=== PATIENT | male | born 1940 | race Caucasian/White ===

== ENCOUNTER → 2017-10-18 | Outpatient (CLI) | payer BC, MEDICARE ==
--- NOTE | 2017-10-18 14:33 | XR ---
EXAMINATION TYPE: XR toes LT DATE OF EXAM: 10/18/2017 COMPARISON: NONE HISTORY: Patient dropped hammer on the fifth digit. Patient is unable to move the fifth digit. TECHNIQUE: 3 views of the left fifth digit/toe were obtained FINDINGS: There is a transversely oriented noncomminuted fracture with overlying soft tissue swelling of the middle phalanx of the fifth digit. No radiopaque foreign body is seen. No additional fracture is identified. IMPRESSION: Transversely oriented noncomminuted acute fracture of the middle phalanx of the fifth dig it/toe.
== END | disposition home or self-care (01) ==
LOC: RADXRYALE 14:00
PROVIDERS: ATTEND Physician Assistant
DX: S92.522A Displaced fracture of middle phalanx of left lesser toe(s), initial encounter for closed fracture (principal)

== ENCOUNTER → 2019-02-15 | Outpatient (CLI) | payer MEDICARE ==
--- NOTE | 2019-02-15 13:13 | CT ---
EXAMINATION TYPE: CT brain wo con DATE OF EXAM: 02/15/2019 COMPARISON: March 19, 2016 HISTORY: Right sided facial and body numbness CT DLP: 1162.[address] of the brain was performed. The ventricles, basal cisterns and sulci overlying the cerebral convexities demonstrate mild enlargem ent. There is no evidence for intracranial hemorrhage or sulcal effacement. There is decreased attenuation about the periventricular white matter and deep white matter of both c erebral hemispheres, compatible with chronic small vessel ischemia. Differential diagnosis does inclu de demyelination. No mass effects are seen.No midline shift. Osseous calvarium is intact. If symptoms persist consider MRI. IMPRESSION: 1. Age related atrophic and chronic small vessel ischemic change without acute intracranial process s een at this time.
== END | disposition home or self-care (01) ==
LOC: RADCTMAIN 12:36
PROVIDERS: ATTEND Family Medicine
DX: I67.82 Cerebral ischemia (principal); G31.1 Senile degeneration of brain, not elsewhere classified; E78.2 Mixed hyperlipidemia; I10 Essential (primary) hypertension; Z85.46 Personal history of malignant neoplasm of prostate
CPT/HCPCS: 70450

== ENCOUNTER → 2019-06-12 | Outpatient (CLI) | payer MEDICARE ==
--- NOTE | 2019-06-12 11:33 | XR ---
EXAMINATION TYPE: XR lumbar spine 2 or 3V DATE OF EXAM: 06/12/2019 CLINICAL HISTORY: Low back pain TECHNIQUE: Frontal and lateral images of the lumbar spine are obtained. COMPARISON: None FINDINGS: There are 5 lumbar type vertebral bodies identified. Bridging anterior osteophytes are se en in the lumbar spine. Intervertebral disc space narrowing is present at L4-5 and L5-S1. Multilevel facet arthropathy. Multilevel endplate sclerosis. Partially visualized hip arthroplasties. Generalize d diffuse osseous demineralization. Lumbar spine vertebral body heights are maintained. Alignment is also maintained in the lumbar spine. IMPRESSION: Moderate multilevel degenerative disc disease of lumbar spine without acute fracture nor malalignment.
== END ==
LOC: RADXRYALE 11:06
PROVIDERS: ATTEND Family Medicine
DX: M51.36 Other intervertebral disc degeneration, lumbar region (principal); M79.661 Pain in right lower leg; R20.2 Paresthesia of skin
CPT/HCPCS: 72100

== ENCOUNTER 2019-08-22 07:43 | Day surgery (SDC) | payer MEDICARE ==
[2019-08-21 09:02] VITALS: BMI 34.7
[~2019-08-22 07:43] MED LIST: LACTATED RINGERS 1,000 ML IV SCH; LIDOCAINE 1% 20 ML VIAL (10MG/ML) FOR IV START INTRADERMA PRN
[2019-08-22 08:08] VITALS: RESP 16; TEMP 98
[2019-08-22] MEDS ORDERED: PROPOFOL 10 MG/ML 20 ML VIAL IV ONE (08:37)
--- NOTE | 2019-08-22 09:21 | P.PCN ---
Date of Procedure: 08/22/19 Description of Procedure: BRIEF HISTORY: Patient is a 78-year-old male presenting for outpatient colonoscopy for history of colon polyps. Denies any change in bowel habits, blood per rectum or abdominal pain. Believes his last colonoscopy was approximately 15 years ago. PROCEDURE PERFORMED: Colonoscopy with polypectomy. PREOPERATIVE DIAGNOSIS: History of colon polyps, remote history of colonoscopy. ESTIMATED BLOOD LOSS: Minimal. IV sedation per Anesthesia. PROCEDURE: After informed consent was obtained, the patient, was brought into the endoscopy unit. IV sedation was administered by Anesthesia under continuous monitoring. Digital rectal examination was normal. Initially a pediatric inserted in the rectum, gradually advanced into the cecum without any difficulty. Careful examination was performed as the scope was gradually being withdrawn. Ileocecal valve and the appendiceal orifice were visualized and appeared normal. Prep was excellent. Mucosa of the cecum, ascending colon, transverse colon, descending colon, sigmoid colon, and rectum appeared normal. Multiple small mouth diverticula in the left colon. 2 polyps measuring 6 mm and 4 mm in size removed from the transverse colon. Diminutive 2 mm descending colon polyp removed with cold forcep polypectomy. Flat 4 mm sigmoid polyp removed with cold snare polypectomy. Retroflexion was performed in the rectum and no lesions were seen. The patient tolerated the procedure well. IMPRESSION: 4 polyps measuring in size from 2-6 mm removed from the transverse colon, descending colon and sigmoid colon (please see body of report for location, size and technique of polypectomy). Mild left colonic diverticulosis. RECOMMENDATIONS: Findings of this examination were discussed with the patient and his . Okay to resume diet. Okay to resume medications. Await pathology from polypectomies. Would recommend repeat colonoscopy in 3 years if otherwise medically stable.
[2019-08-22 09:40] VITALS: BP 112/62; PULSE 49
== END 2019-08-22 09:50 | disposition home or self-care (01) ==
LOC: ORWHC2ENDO 07:43
PROVIDERS: ATTEND Internal Medicine
DX: Z12.11 Encounter for screening for malignant neoplasm of colon (principal); D12.4 Benign neoplasm of descending colon; D12.5 Benign neoplasm of sigmoid colon; K63.5 Polyp of colon; K57.30 Diverticulosis of large intestine without perforation or abscess without bleeding; Z86.010 Personal history of colon polyps; I10 Essential (primary) hypertension; E78.5 Hyperlipidemia, unspecified; F17.210 Nicotine dependence, cigarettes, uncomplicated; E07.9 Disorder of thyroid, unspecified; E66.9 Obesity, unspecified; Z79.899 Other long term (current) drug therapy; Z79.890 Hormone replacement therapy; Z90.79 Acquired absence of other genital organ(s); Z98.890 Other specified postprocedural states; Z85.46 Personal history of malignant neoplasm of prostate; Z68.35 Body mass index [BMI] 35.0-35.9, adult
CPT/HCPCS: 88305; 45380; 45385; J2704

== ENCOUNTER → 2020-12-18 | Outpatient (CLI) | payer MEDICARE ==
--- NOTE | 2020-12-19 05:03 | MR ---
EXAMINATION TYPE: MR lumbar spine wo/w con DATE OF EXAM: 12/18/2020 COMPARISON: None HISTORY: Lower back pain with bilateral sciatica. CONTRAST: Standard multiplanar, multisequence MRI departmental protocol utilizing 11 mL intravenous Gadavist ga dolinium contrast. The lumbar vertebra have normal alignment. There is degenerative disc space narrowing throughout the lumbar spine. There is no compression fracture. I see no focal bone destruction. There is small poste rior disc bulging from L2 to S1. There is some hypertrophic multilevel facet arthropathy. There is mi ld lateral recess stenosis at L4-5 and L2-3. No significant spinal stenosis. There is no lumbar paraspinal mass. There is 1.7 cm cortical cyst posterior left kidney. The visualiz ed sacroiliac joints appear intact. I see no focal bone destruction. IMPRESSION: Multilevel mild spondylotic changes. Mild lateral recess stenosis at L2-3 and L4-5. No fracture.
== END | disposition home or self-care (01) ==
LOC: RADMRIMAIN 16:33
PROVIDERS: ATTEND Family Medicine
DX: M48.061 Spinal stenosis, lumbar region without neurogenic claudication (principal); M47.816 Spondylosis without myelopathy or radiculopathy, lumbar region
CPT/HCPCS: 72158; A9585

== ENCOUNTER → 2021-02-05 | Outpatient (CLI) | payer MEDICARE ==
[2021-02-05 10:39] VITALS: BP 130/72; PULSE 64; RESP 20; TEMP 97.7
--- NOTE | 2021-02-05 11:09 | P.PAINCN ---
History of Present Illness - Reason for Consult Consult date: 02/05/21 - History of Present Illness This is 80 years old male, with a chronic history of severe low back pain with radiation to the hip bilaterally, patient had the symptoms for more than 10 years, but that the intensity of the pain increased over the last 7 months, the pain is constant interfere with the quality of life, patient denies any motor or sensory deficit, he reported that any activity increases his pain, denies any f ever or night sweats. He denies any change in the bowel movement or urination, and home exercise without any benefit Past Medical History Past Medical History: Cancer, Hyperlipidemia, Hypertension, Prostate Disorder, Thyroid Disorder Additional Past Medical History / Comment(s): HX PROSTATE CA 2006 WITH RADIATION TX, URINARY LEAKAGE, SOB W/ ACTIVITY. History of Any Multi-Drug Resistant Organisms: None Reported Past Surgical History: Appendectomy, Prostate Surgery Additional Past Surgical History / Comment(s): PROSTATECTOMY, PERMANENT CONTACT LENS IMPLANT LT EYE, HX JAW SURGERY R/T JAW FX Past Anesthesia/Blood Transfusion Reactions: No Reported Reaction Additional Past Anesthesia/Blood Transfusion Reaction / Comm: STATES "UNABLE TO FULLY OPEN JAW R/T PRIOR JAW SURGERY, WAS TOLD BY PAIN CLINIC MAYBE DIFFICULT TO INTUBATE." Smoking Status: Light tobacco smoker - Past Family History Mother Family Medical History: Cancer Additional Family Medical History / Comment(s): LUNG Medications and Allergies Home Medications Medication Instructions Recorded Confirmed Type Fish Oil/Dha/Epa [Fish Oil 1,200 1,200 mg PO DAILY 02/28/14 02/05/21 History mg Fish Oil] Levothyroxine Sodium [Synthroid] 125 mcg PO QAM 02/28/14 02/05/21 History lisinopriL 40 mg PO BID 02/28/14 02/05/21 History Rosuvastatin Calcium [Crestor] 40 mg PO HS 06/18/14 02/05/21 History Cholecalciferol [Vitamin D3 (25 1,000 unit PO DAILY 08/21/19 02/05/21 History Mcg = 1000 Iu)] Glucosamine Sulfate 500 mg PO DAILY 08/21/19 02/05/21 History amLODIPine [Norvasc] 2.5 mg PO DAILY 08/21/19 02/05/21 History Allergies Allergy/AdvReac Type Severity Reaction Status Date / Time No Known Allergies Allergy Verified 08/22/19 08:11 Physical Exam Vitals: Vital Signs Temp Pulse Resp BP Pulse Ox 02/05/21 10:23 97.7 F 64 20 130/72 97 Intake and Output 02/04/21 02/05/21 02/05/21 22:59 06:59 14:59 Other: Weight 105.233 kg Physical Examinations : -Constitutiona : Cooperative , not in acute distress . -HEENT : nech : supple , no Lymphadenopathy , normal thyroid size . : eyes : no ptosis , no icterus, no photophobia . - neurologic : Cranial nerve II to XII intact , no focal neurological deffecit . -psychatric : alert , oriented X 3 , appropriate affect , intact judgment and insight . -Lymphatic : no Lymphadenopathy . - musculoskeltal : Lumber spine moter stegnth lower extremities ,thigh and legs 5/5 Right side , 5/5 Left side deep tendon reflexes : normal Knee Jerk , normal ankle Jerk lumber facet Loading Test =positive Right , positive Left Range of motion of the lumbar spine Flexion 30 degrees, extension 10 degrees strait leg raising test = positive at 45 degree Fabere test= positive Right , and positive LT . tenderness over the Sacroiliac joint on the Left sides Flexion, lateral rotation of the hip joint associated with pain Results Comments: MRI of the lumbar spine multilevel spondylosis and there is some hypertrophic facet arthropathy Assessment and Plan Plan: Assessment and plan=1-lumbar spondylosis with lumbar facet arthropathy. 2-lumbar degenerative disc disease. 3-bilateral hip arthralgia (had bilateral hip replacement surgery more than 10 years ago) And could benefit from lumbar epidural steroid injection at L5-S1 x2 , he continued to have pain after the epidural steroid injection then We could consider referring him for evaluation by orthopedic surgeon, regarding his hip pain Time with Patient: Greater than 30 PQRS Measure Charge Sheet Measure #130: Documentation of Current Meds in Medical Chart: Patient's medications documented in chart Measure #226: Tobacco Use: Screen & Cessation Intervention: Pt screened for tobacco use AND intervention given Measure #111: Pneumonia Vaccination: Pneumococcal vaccine NOT administered or previously given Measure #47: Advance Care Plan: Advance care planning discussed & documented, pt chose/unable to give Measure #412: Opioid Treatment Agreement: No documentation of signed opioid treatment agreement Measure #408: Opioid Therapy Follow-up Evaluation: Patient had NO f/u eval minimum every 3 months during opioid therapy Measure #317: Preventitive Care & Scrn High Bld Press & F/U: Normal blood pressure, f/u not required Measure #128: Body Mass Index (BMI) Screening & Follow-up: BMI documented ABOVE normal parameters - f/u documented Measure #131: Pain Assessment & Follow-up: Pain positive & plan documented, Follow-up scheduled Measure #431: Unhealthy Alcohol Use Preventative Care & Scrn: Patient not identified as an unhealthy alcohol user PQRS Narrative: Smoking Status Current every day smoker Blood Pressure 130/72 Pain Intensity [Bilateral Hip] 8 Scale Used Numeric (1 - 10) Hx Alcohol Use (MH) Yes: occ Home Medications: Ambulatory Orders Fish Oil/Dha/Epa [Fish Oil 1,200 mg Fish Oil] 1,200 mg PO DAILY 02/28/14 Levothyroxine Sodium [Synthroid] 125 mcg PO QAM 02/28/14 lisinopriL 40 mg PO BID 02/28/14 Rosuvastatin Calcium [Crestor] 40 mg PO HS 06/18/14 Cholecalciferol [Vitamin D3 (25 Mcg = 1000 Iu)] 1,000 unit PO DAILY 08/21/19 Glucosamine Sulfate 500 mg PO DAILY 08/21/19 amLODIPine [Norvasc] 2.5 mg PO DAILY 08/21/19
== END ==
LOC: PNWHC3 09:44
PROVIDERS: ATTEND Specialist
DX: M47.816 Spondylosis without myelopathy or radiculopathy, lumbar region (principal); M51.36 Other intervertebral disc degeneration, lumbar region; M25.552 Pain in left hip; M25.551 Pain in right hip; Z96.643 Presence of artificial hip joint, bilateral; E78.5 Hyperlipidemia, unspecified; I10 Essential (primary) hypertension; F17.200 Nicotine dependence, unspecified, uncomplicated; Z79.899 Other long term (current) drug therapy
CPT/HCPCS: 99212

== ENCOUNTER 2021-02-27 12:24 | Day surgery (SDC) | payer MEDICARE ==
[2021-02-25 16:05] VITALS: BMI 33.3
[~2021-02-27 12:24] MED LIST changes: -LIDOCAINE 1% 20 ML VIAL (10MG/ML) FOR IV START INTRADERMA PRN
[2021-02-27 13:27] VITALS: TEMP 98.4
[2021-02-27] MEDS ORDERED: MIDAZOLAM 2 MG/2 ML VIAL ONE (13:54)
[2021-02-27] MEDS ORDERED: IOPAMIDOL M200 10 ML VIAL ONE (13:54)
[2021-02-27] MEDS ORDERED: TRIAMCINOLONE ACETONIDE 40 MG/ML 1 ML VIAL ONE (13:54)
[2021-02-27] MEDS ORDERED: fentaNYL (PF) 50 MCG/ML 2 ML AMP ONE (13:54)
[2021-02-27] MEDS ORDERED: ROPIVACAINE 5MG/ML 20ML VIAL ONE (13:54)
--- NOTE | 2021-02-27 14:09 | P.PCN ---
Date of Procedure: 02/27/21 Surgeon: Brissa Cardenas Pathology: none sent Condition: stable Disposition: PACU Description of Procedure: REOPERATIVE DIAGNOSIS: 1-Lumbar radiculopathy 2- Lumber Degenerative Disc Diseases. POSTOPERATIVE DIAGNOSIS: 1-Lumbar radiculopathy. 2-Lumbar Degenerative Disc Diseases PROCEDURE 1. Lumbar epidural steroid injection under fluoroscopic guidance at the L5-S1 level in the right paramedian approach. 2. Lumbar epidurogram. ANESTHESIA: Local with 1% lidocaine; and IV moderate conscious sedation with Versed and fentanyl EBL: Minimal PROCEDURE INDICATION: The patient with low back pain and radiculitis symptoms unresponsive to conservative treatment. Fluoroscopy was used to optimize visualization of the needle placement and to maximize safety. PROCEDURE DESCRIPTION / TECHNIQUE: The patient was seen and identified in the preoperative area. Risks, benefits, complications including but not limited to infections ,bleeding ,allergic reaction to the medications ,nerve damage and not complete pain relief , and alternatives were discussed with the patient. The patient agreed to proceed with the procedure and signed the consent. IV was started, and vital signs were stable. Patient was taken to the OR and time out was completed. The patient was placed in the prone position on procedure table and a pillow was placed under the abdomen to reduce lumbar lordosis. The lumbosacral area was prepped and draped in the usual sterile fashion with ChloraPrep.Patient was closely monitored during the procedure. Conscious sedation was used during the procedure to decrease patients anxiety. Vital signs were monitered during the entire procedure. Using anterior-posterior fluoroscopy, the L5-S1 interlaminar space was identified and the skin over this site was marked and then infiltrated with 1% lidocaine subcutaneously. Subsequently, a 20-gauge Tuohy epidural needle was inserted and advanced toward the epidural space using the Loss of resistance to air technique and guided by AP and lateral fluoroscopy. The correct needle position in the epidural space was verified with the injection of 1 mL of the water soluble contrast dye Omnipaque 180 contrast and observing an excellent epidurogram with the epidural spread of the dye, after negative aspiration for blood and CSF and in the absence of paresthesias. Again after negative aspiration, a 7 ml mixture containing 40 mg of Kenalog and 5 ml of preservative free Normal Saline, and 2 ml of preservative free ropivacaine 0.5% solution was injected and a washout of epidurogram was seen. Needle was withdrawn intact, skin was cleansed, and bandages were applied. patient tolerated procedure well and was transferred to PACU in stable condition.A copy of the needle placement picture was saved to the fluoroscopy machine. COMPLICATIONS: None DISPOSITION / PLANS: The patient was placed in a supine position and transferred to the recovery area in a stable condition for observation. There was no evidence of lower extremity motor or sensory deficit after the procedure. Patient was discharged from the recovery room after meeting discharge criteria. Home discharge instructions were given to the patient by the staff. The patient was reexamined prior to discharge. The patient will schedule a follow up in the clinic in 2-4 weeks.
[2021-02-27] MEDS ORDERED: IV FLUID CONTINUATION 1,000 ML IV ONE (14:15)
[2021-02-27 14:17] VITALS: BP 111/61; PULSE 53; RESP 16
--- NOTE | 2021-02-27 14:58 | FL ---
EXAMINATION TYPE: FL guided pain mgmt statistic DATE OF EXAM: 02/27/2021 FLUOROSCOPY Fluoroscopy time of 11 seconds was used during lumbar epidural steroid injection. 2 image/s document /s the procedure.
== END 2021-02-27 14:49 | disposition home or self-care (01) ==
LOC: ORPAIN 12:24
PROVIDERS: ATTEND Anesthesiology
DX: M51.16 Intervertebral disc disorders with radiculopathy, lumbar region (principal)
CPT/HCPCS: 62323; J2250; J3301; J3010; Q9966; J2795; 99152

== ENCOUNTER → 2021-03-19 | Outpatient (CLI) | payer MEDICARE ==
[2021-03-19 13:19] VITALS: BP 127/70; PULSE 56; RESP 18; TEMP 98.4
--- NOTE | 2021-03-19 13:31 | P.PAINPG ---
Subjective Progress Note Date: 03/19/21 This is 80 years old male, with a chronic history of severe low back pain with radiation to the hip bilaterally, patient had the symptoms for more than 10 years, but that the intensity of the pain increased over the last 7 months, the pain is constant interfere with the quality of life, patient denies any motor or sensory deficit, he reported that any activity increases his pain, denies any fever or night sweats. He denies any change in the bowel movement or urination, and home exercise without any benefit We recently performed L5-S1 epidural steroid injection. Injection was quite helpful, commenting that it provided about 50% relief and significant improved dysfunction.. He is currently doing physical therapy which was not helpful. He wants to repeat injection as a not only help with his low back pain with hip pain as well. Physical Examinations : -Constitutiona : Cooperative , not in acute distress . -HEENT : nech : supple , no Lymphadenopathy , normal thyroid size . : eyes : no ptosis , no icterus, no photophobia . - neurologic : Cranial nerve II to XII intact , no focal neurological deffecit . -psychatric : alert , oriented X 3 , appropriate affect , intact judgment and insight . -Lymphatic : no Lymphadenopathy . - musculoskeltal : Lumber spine moter stegnth lower extremities ,thigh and legs 5/5 Right side , 5/5 Left side deep tendon reflexes : normal Knee Jerk , normal ankle Jerk lumber facet Loading Test =positive Right , positive Left Range of motion of the lumbar spine Flexion 30 degrees, extension 10 degrees strait leg raising test = positive at 45 degree Fabere test= positive Right , and positive LT . tenderness over the Sacroiliac joint on the Left sides Flexion, lateral rotation of the hip joint associated with pain Results Comments: MRI of the lumbar spine multilevel spondylosis and there is some hypertrophic facet arthropathy Assessment and Plan Plan: Assessment and plan=1-lumbar spondylosis with lumbar facet arthropathy. 2-lumbar degenerative disc disease. 3-bilateral hip arthralgia (had bilateral hip replacement surgery more than 10 years ago) - Patient could Benefit from repeat L5-S1 epidural steroid injection. He is a history of hip pain as well and could benefit from future orthopedic evaluation if it is not improved with injections. I have spent 23 minutes on review of the records, review of the imaging available, [id number] interaction with the patient, medication management, follow-up care coordination and record creation. PQRS Measure Charge Sheet Measure #130: Documentation of Current Meds in Medical Chart: Patient's medications documented in chart Measure #226: Tobacco Use: Screen & Cessation Intervention: Pt screened for tobacco use AND intervention given Measure #111: Pneumonia Vaccination: Pneumococcal vaccine NOT administered or previously given Measure #47: Advance Care Plan: Advance care planning discussed & documented, pt chose/unable to give Measure #412: Opioid Treatment Agreement: No documentation of signed opioid treatment agreement Measure #408: Opioid Therapy Follow-up Evaluation: Patient had NO f/u eval minimum every 3 months during opioid therapy Measure #317: Preventitive Care & Scrn High Bld Press & F/U: Normal blood pressure, f/u not required Measure #128: Body Mass Index (BMI) Screening & Follow-up: BMI documented ABOVE normal parameters - f/u documented Measure #131: Pain Assessment & Follow-up: Pain positive & plan documented, Follow-up scheduled Measure #431: Unhealthy Alcohol Use Preventative Care & Scrn: Patient not identified as an unhealthy alcohol user PQRS Narrative: Objective - Vital Signs Vital signs: Intake & Output 03/17/21 03/18/21 03/18/21 18:59 06:59 18:59 Weight 102.965 kg PQRS Measure Charge Sheet PQRS Narrative: Smoking Status Current every day smoker Pain Intensity [None] 0 Hx Alcohol Use (MH) Yes: occ Home Medications: Ambulatory Orders Fish Oil/Dha/Epa [Fish Oil 1,200 mg Fish Oil] 1,200 mg PO DAILY 02/28/14 Levothyroxine Sodium [Synthroid] 125 mcg PO QAM 02/28/14 lisinopriL 40 mg PO BID 02/28/14 Rosuvastatin Calcium [Crestor] 40 mg PO HS 06/18/14 Cholecalciferol [Vitamin D3 (25 Mcg = 1000 Iu)] 1,000 unit PO DAILY 08/21/19 Glucosamine Sulfate 500 mg PO DAILY 08/21/19 amLODIPine [Norvasc] 2.5 mg PO DAILY 08/21/19 Controlled Substance Measures - Controlled Substance Measures Is patient prescribed a controlled substance at discharge?: No
== END ==
LOC: PNWHC3 12:49
PROVIDERS: ATTEND Anesthesiology
DX: M47.816 Spondylosis without myelopathy or radiculopathy, lumbar region (principal); M51.36 Other intervertebral disc degeneration, lumbar region; M25.552 Pain in left hip; M25.551 Pain in right hip; F17.200 Nicotine dependence, unspecified, uncomplicated; Z96.643 Presence of artificial hip joint, bilateral
CPT/HCPCS: 99211

== ENCOUNTER 2021-04-24 10:54 | Day surgery (SDC) | payer MEDICARE ==
[2021-04-23 10:06] VITALS: BMI 33.1
[2021-04-24 11:45] VITALS: TEMP 98.3
[2021-04-24] MEDS ORDERED: LIDOCAINE 1% (10MG/ML) FOR IV START INTRADERMA ONE (11:45)
[2021-04-24] MEDS ORDERED: methylPREDNISolone ACETATE 40 MG/ML 1 ML VIAL ONE (12:03)
[2021-04-24] MEDS ORDERED: fentaNYL (PF) 50 MCG/ML 2 ML AMP ONE (12:03)
[2021-04-24] MEDS ORDERED: IOPAMIDOL M200 10 ML VIAL ONE (12:03)
[2021-04-24] MEDS ORDERED: MIDAZOLAM 2 MG/2 ML VIAL ONE (12:03)
--- NOTE | 2021-04-24 12:17 | P.PCN ---
Date of Procedure: 04/24/21 Procedure(s) Performed: PREOPERATIVE DIAGNOSIS: 1- Lumbar Degenerative Disc Diseases 2-Lumbar spondylosis with Facet arthropathy without myelopathy. 3-bilateral hip arthralgia POSTOPERATIVE DIAGNOSIS: Same as preop diagnosis. PROCEDURE 1. Lumbar epidural steroid injection under fluoroscopic guidance at the L5-S1 level. (Fluoroscopy imaging was available in radiology department) 2. Lumbar epidurogram. ANESTHESIA: Local with 1% lidocaine 3 ml and , moderate sedation with intravenous Versed 1 mg ,and fentanyle 50 Mcg EBL: Minimal PROCEDURE INDICATION: The patient with low back pain and radiculitis symptoms unresponsive to conservative treatment. Fluoroscopy was used to optimize visualization of the needle placement and to maximize safety. PROCEDURE DESCRIPTION / TECHNIQUE: The patient was seen and identified in the preoperative area. Risks, benefits, complications including but not limited to infections ,bleeding ,allergic reaction to the medications ,nerve damage and not complete pain releife , and alternatives were discussed with the patient. The patient agreed to proceed with the procedure and signed the consent. IV was started, and vital signs were stable. Patient was taken to the OR and time out was completed. The patient was placed in the prone position on procedure table and a pillow was placed under the abdomen to reduce lumbar lordosis. The lumbosacral area was prepped and draped in the usual sterile fashion.ere closely monitored during the procedure. Conscious sedation was used during the procedure to decrease patients anxiety. Vital signs was monitered during the entire procedure. Using anterior-posterior fluoroscopy, the L5-S1 interlaminar space was identified and the skin over this site was marked and then infiltrated with 1% lidocaine subcutaneously. Subsequently, a 20-gauge Tuohy epidural needle was inserted and advanced toward the epidural space using the ``Loss of resistance technique and guided by AP and lateral fluoroscopy. The correct needle position in the epidural space was verified with the injection of 2 mL of the water soluble contrast dye Isovue 200 contrast and observing an excellent epidurogram with the epidural spread of the dye, after negative aspiration for blood and CSF and in the absence of paresthesias. Again after negative aspiration, a 6 ml mixture containing 40 mg of Depo-medrol , and 2 ml of preservative free Normal Saline, and 2 ml of preservative free lidocaine 1% solution was injected and a washout of epidurogram was seen. Needle was withdrawn intact, skin was cleansed, and bandages were applied. COMPLICATIONS: None DISPOSITION / PLANS: The patient was placed in a supine position and transferred to the recovery area in a stable condition for observation. There was no evidence of lower extremity motor or sensory deficit after the procedure. Patient was discharged from the recovery room after meeting discharge criteria. Home discharge instructions were given to the patient by the staff. The patient was reexamined prior to discharge. The patient will schedule a follow up in the clinic in 2-4 weeks.
[2021-04-24] MEDS ORDERED: IV FLUID CONTINUATION 750 ML IV ONE (12:22)
[2021-04-24 12:28] VITALS: RESP 20
--- NOTE | 2021-04-24 12:51 | FL ---
Fluoroscopy HISTORY: Pain 2 seconds fluoroscopy time supplied to the referring clinician. 1 intraoperative C-arm images docume nt the procedure. See dictated report from anesthesia.
[2021-04-24 13:17] VITALS: BP 112/76; PULSE 51
== END 2021-04-24 13:13 | disposition home or self-care (01) ==
LOC: ORPAIN 10:54
PROVIDERS: ATTEND Specialist
DX: M51.36 Other intervertebral disc degeneration, lumbar region (principal); M47.816 Spondylosis without myelopathy or radiculopathy, lumbar region; M25.552 Pain in left hip; M25.551 Pain in right hip
CPT/HCPCS: 62323; J2250; J1030; J3010; Q9966; 99152

== ENCOUNTER → 2021-05-15 | Outpatient (CLI) | payer MEDICARE ==
[2021-05-15 13:51] VITALS: BP 149/63; PULSE 56; RESP 18; TEMP 97.9
--- NOTE | 2021-05-15 13:57 | P.PN ---
Subjective Progress Note Date: 05/15/21 This is a 80-year-old gentleman with history of axial lower back pain and o ccasional weakness in the right lower extremity. The patient had 2 lumbar epidural steroid injections which helped his pain significantly. Today he denies any back pain and he states that he is doing great. 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 Patient denies new-onset weakness, bowel/bladder incontinence, or any other signs or symptoms of cauda equina syndrome. There are no signs of acute intoxication, and no indications of medication diversion or overuse. In addition to above, 13-point review of systems is also negative for chest pain, shortness of breath, changes in vision, changes in hearing, new onset weakness, abdominal pain, diarrhea, extreme fatigue, malaise, fever, skin changes, homicidal or suicidal ideation, or bowel or bladder incontinence. 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 Explanation: When patients on opioids, opioid and psychological risk scores were reviewed. Diagnoses, prognoses, and multiple treatment options including but not limited to physical therapy, interventional therapies, adjuvant medical therapies, narcotic medication therapies, and surgery were discussed with the patient and all questions were answered to the patient's satisfaction. 2. Opioid agreement:When patients are prescribed opoids through our clinic, opioid agreement is signed with the patient and the patient is warned not to use opioids while driving or before driving and not to combine opioids with benzodiazepines or alcohol. 3. Counseling: When patient is smoking or obese, the patient was counseled extensively on SMOKING CESSATION, BODY MASS INDEX, EXERCISE. Specifically, the patient was instructed regarding the importance of smoking cessation, obesity, and exercise in the context of both chronic pain and overall health. 4. Procedures: None 5. Consultations: None 6. Investigations: None 7. Medications: None 8. Disposition: Follow up as needed 9. Maps were reviewed and were appropriate. Objective - Vital Signs Vital signs: Vital Signs Temp 97.9 F 05/15/21 13:49 Pulse 56 L 05/15/21 13:49 Resp 18 05/15/21 13:49 BP 149/63 05/15/21 13:49 Pulse Ox Intake & Output 05/14/21 05/15/21 05/15/21 18:59 06:59 18:59 Weight 106.594 kg
== END ==
LOC: PNWHC3 13:40
PROVIDERS: ATTEND Anesthesiology
DX: M51.36 Other intervertebral disc degeneration, lumbar region (principal); M47.816 Spondylosis without myelopathy or radiculopathy, lumbar region; F17.200 Nicotine dependence, unspecified, uncomplicated
CPT/HCPCS: 99211

== ENCOUNTER → 2022-11-10 | Outpatient (CLI) | payer MEDICARE ==
--- NOTE | 2022-11-10 11:20 | XR ---
EXAMINATION TYPE: XR foot complete RT DATE OF EXAM: 11/10/2022 11:06 AM INDICATION: Patient age:Male; 82 years old; Reason for study: [id number] PAIN RT FOOT,MASS,LUMP; COMPARISON: None TECHNIQUE: The right foot was examined in the AP, oblique, and lateral projections. FINDINGS: 2 radiopaque round densities are present. No evidence of any acute osseous pathology. Mild soft tissue swelling over the dorsal foot. Joints a re preserved. IMPRESSION: 1. No evidence of acute fracture. 2. Mild soft tissue swelling over the dorsal foot. Consider further evaluation with MRI with IV cont rast. 3. There are two radiopaque BBs.
== END | disposition home or self-care (01) ==
LOC: RADXRYALE 10:54
PROVIDERS: ATTEND Physician Assistant Medical
DX: M79.671 Pain in right foot (principal); R22.41 Localized swelling, mass and lump, right lower limb

== ENCOUNTER → 2023-02-22 | Outpatient (CLI) | payer MEDICARE ==
--- NOTE | 2023-02-27 09:00 | MR ---
EXAMINATION TYPE: MR knee RT wo con DATE OF EXAM: 02/22/2023 COMPARISON: None HISTORY: Right knee pain. TECHNIQUE: Multiplanar, multisequence imaging of the right knee is performed without IV contrast. FINDINGS: There is no bone contusion or fracture. There is moderate to marked osteophytic change of the medial compartment of the knee with moderate to marked thinning of the articular cartilage and mild hypertrophic spurring. There are a few subchondr al cysts in the medial tibial plateau is no significant cartilage thinning or degeneration of the lat eral compartment or patellofemoral compartment.. There are multiple tears of the medial meniscus with a radial tear in the posterior horn the medial m eniscus and a horizontal tear of the body of the medial meniscus. The lateral meniscus is intact. The medial and lateral collateral ligaments are intact. There is mucoid degeneration of the anterior cruciate ligament but no tear of the cruciate ligaments. There is a small to moderate joint effusion and a small to moderate Echeverria's cyst. IMPRESSION: 1. Moderate to marked osteophytic change of medial compartment knee. 2. Multiple tears of the medial meniscus as described above. 3. Small to moderate joint effusion and small to moderate Echeverria's cyst. 4. No acute ligamentous injury.
== END | disposition home or self-care (01) ==
LOC: RADMRIMAIN 12:31
PROVIDERS: ATTEND Orthopaedic Surgery
DX: S83.241A Other tear of medial meniscus, current injury, right knee, initial encounter (principal); M25.461 Effusion, right knee; M71.21 Synovial cyst of popliteal space [Baker], right knee; M25.761 Osteophyte, right knee

== ENCOUNTER 2023-03-25 09:48 | Day surgery (SDC) | payer MEDICARE ==
--- NOTE | 2023-03-24 14:11 | HP ---
HISTORY AND PHYSICAL DATE OF SCHEDULED SURGERY: 03/25/2023. HISTORY OF PRESENT ILLNESS: Marc Almaraz is an 82-year-old gentleman seen with progressive right knee pain. We discussed options for treatment. He elected to proceed with right knee arthroscopy. Consent was obtained. Medical clearance was provided by Dr. Asencio's office. PAST MEDICAL HISTORY: Hypertension, hyperlipidemia, hypothyroidism. PAST SURGICAL HISTORY: Bilateral total hip arthroplasty, prostate surgery. DAILY MEDICATIONS: 1. Amlodipine. 2. Levothyroxine. 3. Lisinopril. 4. Rosuvastatin. 5. Tramadol. ALLERGIES: None. SOCIAL HISTORY: Smokes cigarettes. PHYSICAL EVALUATION OF RIGHT KNEE: Range of motion is negative 3/4 to 95 degrees. Mild effusion. Tenderness along the lateral joint line. Positive lateral Jenny's. Ligaments stable. Hip rotation without pain. Distal neurovascular exam intact. RADIOGRAPHS: Radiographs of the right knee revealed moderate osteoarthritic changes. MRI right knee revealed meniscal tear, moderate osteoarthritis and effusion. IMPRESSION: 1. Internal derangement of right knee with medial meniscal tear. 2. Hypertension. 3. Hyperlipidemia. 4. Hypothyroidism. PLAN: Right knee arthroscopy with partial medial meniscectomy and debridement. MMODL / IJN: [id number] /
[~2023-03-25 09:48] MED LIST changes: +DEXAMETHASONE SOD PHOSPHATE 4 MG/ML 1 ML VIAL IV ONE; +LIDOCAINE 1% (10MG/ML) FOR IV START INTRADERMA PRN; +MIDAZOLAM 2 MG/2 ML VIAL IV PRN; +ONDANSETRON 4 MG/2 ML VIAL IVP ONE
[2023-03-25] MEDS ORDERED: LACTATED RINGERS 1,000 ML IV ONE (10:10)
[2023-03-25] MEDS ORDERED: LIDOCAINE 2% INJ 20 MG/ML (2 ML VIAL) ONE (11:06)
[2023-03-25] MEDS ORDERED: PROPOFOL 10 MG/ML 20 ML VIAL IV ONE (11:06)
[2023-03-25] MEDS ORDERED: fentaNYL (PF) 50 MCG/ML 2 ML AMP ONE (11:06)
[2023-03-25] MEDS ORDERED: KETOROLAC 15 MG/ML 1 ML VIAL ONE (11:06)
[2023-03-25] MEDS ORDERED: BUPIVACAINE (PF) 0.25% 10 ML VIAL MISCELLANE ONE ×2 (11:08→11:44)
[2023-03-25 11:56] VITALS: RESP 16; TEMP 97.6
[2023-03-25] MEDS: HYDROmorphone 0.5 MG/0.5 ML SYRINGE IVP PRN ×3 (11:56→12:30)
--- NOTE | 2023-03-25 12:00 | P.OP ---
Date of Procedure: 03/25/23 Preoperative Diagnosis: Internal derangement right knee Postoperative Diagnosis: 1. Tear medial meniscus right knee 2. Grade 4 chondromalacia medial femoral condyle right knee 3. Reactive synovitis medial, lateral and suprapatellar compartments right knee Procedure(s) Performed: 1. Arthroscopic partial medial meniscectomy right knee 2. Arthroscopic microfracture medial femoral condyle right knee 3. Arthroscopic partial synovectomy medial, lateral and suprapatellar compartments right knee Anesthesia: ZEENATA, local Surgeon: Jimy Rhodes Estimated Blood Loss (ml): 7 Pathology: none sent Condition: stable Disposition: PACU Indications for Procedure: 82-year-old gentleman seen with progressive right knee pain. After having treatment options discussed, he elected to proceed with arthroscopy. Operative Findings: See description of procedure Description of Procedure: Patient was taken to the operative suite. Patient underwent a general anesthetic by the department of anesthesia. Patient was given preoperative antibiotics. The right lower extremity was placed in a well-padded arthroscopic leg rios. The right leg was prepped and draped in the normal sterile orthopedic fashion. A lateral parapatellar and suprapatellar incision was made. Trochars were inserted. Arthroscopy was initiated. Suprapatellar pouch revealed diffuse thick reactive synovitis. The patellofemoral joint appeared to articulate congruently. There was grade 2/3 chondromalacia involving the patellofemoral joint without significant osteochondral tears.. The scope was guided into the medial gutter. No loose bodies or plica were identified. The scope was then guided into the medial compartment. A medial parapatellar incision was made. Trocar inserted followed by probe. There was a complex tear involving the posterior horn medial meniscus. There were grade 4 chondromalacia changes of the medial femoral condyle with an area anteriorly exposed bone measuring 1.5 cm in diameter. There were grade 2/3 chondromalacia changes of the tibial plateau. There was some thick reactive synovitis anteriorly. I performed a partial medial meniscectomy getting down to stable meniscal tissue. I performed a partial synovectomy decompressing the reactive synovitis. I introduced a microfracture awl and I performed a microfracture to the area of exposed bone along the anterior aspect medial femoral condyle penetrating the marichuy ne with resultant bleeding at the microfracture site. The residual meniscus was probed and was found to be stable. The residual osteochondral surface appears stable. There was good decompression of the synovitis. Scope and probe were then guided into the intercondylar notch. Cruciates were identified, probed and found to be stable. The scope and probe were then guided into lateral compartme nt. The lateral meniscus was found to be stable. Lateral compartment revealed grade 1/2 chondromalacia changes without tears. There was some synovitis anteriorly. I used a motorized shaver and performed a partial synovectomy. There was good decompression of the synovitis. The scope was in guided back into the suprapatellar compartment. I used a motorized shaver into the suprapatellar compartment. I debrided some piecemeal fragments of meniscus. I performed a partial synovectomy. Shaver was removed. There was good decompression of the synovitis. We again noted grade 2/3 chondromalacia changes of patellofemoral joint. I took one more look around the entire knee, no residual debris. Instruments were now removed from the joint. The joint was infiltrated with .25% Marcaine. Steri-Strips were applied to the portal sites. Sterile dressings were applied. The patient was placed into a COLLINS hose. No tourniquet was utilized. The patient was awakened, transferred to a bed and ta renee to recovery stable satisfactory condition.
[2023-03-25 13:50] VITALS: BP 131/65; PULSE 59
== END 2023-03-25 13:51 | disposition home or self-care (01) ==
LOC: OR 09:48
PROVIDERS: ATTEND Orthopaedic Surgery
DX: S83.231A Complex tear of medial meniscus, current injury, right knee, initial encounter (principal); M22.41 Chondromalacia patellae, right knee; M65.161 Other infective (teno)synovitis, right knee; M23.303 Other meniscus derangements, unspecified medial meniscus, right knee; I10 Essential (primary) hypertension; E78.5 Hyperlipidemia, unspecified; E03.9 Hypothyroidism, unspecified; F17.210 Nicotine dependence, cigarettes, uncomplicated; M17.11 Unilateral primary osteoarthritis, right knee; Z79.891 Long term (current) use of opiate analgesic; Z79.899 Other long term (current) drug therapy; Z79.1 Long term (current) use of non-steroidal anti-inflammatories (NSAID); Z98.890 Other specified postprocedural states; Z85.46 Personal history of malignant neoplasm of prostate; X58.XXXA Exposure to other specified factors, initial encounter
CPT/HCPCS: 29881; 29879; J1100; J0690; J2405; J3010; J1885; J2704; J1170; J2001; J0665

== ENCOUNTER → 2023-07-29 | Outpatient (CLI) | payer MEDICARE ==
--- NOTE | 2023-07-29 17:21 | XR ---
EXAMINATION TYPE: XR hand complete RT DATE OF EXAM: 07/29/2023 2:49 PM CLINICAL INDICATION:Male, 82 years old with history of [id number] RT HAND PAIN; COMPARISON: None TECHNIQUE: XR hand complete RT Frontal, lateral and oblique views were obtained. FINDINGS: Normal alignment of the visualized joints. No acute osseous pathology is identified. No e vidence of soft tissue swelling. Multifocal degeneration changes most pronounced in the interphalange al joints with joint space narrowing and osteophyte formation. IMPRESSION: 1. No acute osseous pathology. 2. Moderate focal degeneration changes most pronounced at the interphalangeal joints.
== END | disposition home or self-care (01) ==
LOC: RADXRYALE 14:33
PROVIDERS: ATTEND Physician Assistant Medical
DX: M19.041 Primary osteoarthritis, right hand (principal)

== ENCOUNTER → 2024-01-04 | Outpatient (CLI) | payer MEDICARE ==
--- NOTE | 2024-01-04 12:43 | XR ---
EXAMINATION TYPE: XR elbow complete RT DATE OF EXAM: 01/04/2024 COMPARISON: None HISTORY: 83-year-old male [id number] RT ELBOW INJURY TECHNIQUE: 3 views FINDINGS: Prominent bony irregularity at the lateral condyle. Degenerative spurring along the trochlear joint. Olecranon spur. Additional degenerative spurring at the radial head on the lateral view. No elbow rom nt effusion. No acute fracture, subluxation, dislocation. IMPRESSION: 1. 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 2. 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 3. No acute osseous abnormality seen.
== END | disposition home or self-care (01) ==
LOC: RADXRYALE 10:28
PROVIDERS: ATTEND Physician Assistant Medical
DX: M19.021 Primary osteoarthritis, right elbow (principal); S59.901A Unspecified injury of right elbow, initial encounter; X58.XXXA Exposure to other specified factors, initial encounter

== ENCOUNTER 2024-05-19 09:26 | Day surgery (SDC) | payer MEDICARE ==
[2024-05-17 13:20] VITALS: BMI 33.0
[2024-05-19] MEDS: LACTATED RINGERS 1,000 ML IV SCH (10:15)
[2024-05-19 10:16] VITALS: TEMP 97.2
[2024-05-19] MEDS: IV FLUID CONTINUATION 1,000 ML IV ONE (10:21)
[2024-05-19] MEDS ORDERED: PROPOFOL 10 MG/ML 20 ML VIAL IV ONE (10:58)
--- NOTE | 2024-05-19 11:19 | P.PCN ---
Date of Procedure: 05/19/24 Procedure(s) Performed: BRIEF HISTORY: Patient is a 83-year-old pleasant white male scheduled for an elective colonoscopy as a part of evaluation by history of colon polyps. Last colonoscopy was 4 years ago. PROCEDURE PERFORMED: Colonoscopy with biopsy. PREOPERATIVE DIAGNOSIS: History of colon polyps. IV sedation per Anesthesia. PROCEDURE: After informed consent was obtained, the patient, was brought into the endoscopy unit. IV sedation was administered by Anesthesia under continuous monitoring. Digital rectal examination was normal. Initially the Olympus CF-160 flexible video colonoscope was then inserted in the rectum, gradually advanced into the cecum without any difficulty. Careful examination was performed as the scope was gradually being withdrawn. Ileocecal valve and the appendiceal orifice were visualized and appeared normal. Prep was fair.. Mucosa of the cecum, ascending colon, transverse colon, descending colon, sigmoid colon, and rectum appeared normal. In the rectum there was a 3 mm polyp that was removed by cold biopsy. Scattered sigmoid diverticulosis seen. Retroflexion was performed in the rectum and no lesions were seen. The patient tolerated the procedure well. IMPRESSION: 3 mm mid rectal polyp status post cold biopsy Scattered sigmoid diverticulosis RECOMMENDATIONS: Findings of this examination were discussed with the patient as well as his family.. He was advised to follow with the biopsy results. Continue the high-fiber diet and fiber supplements on a regular basis.
[2024-05-19 12:08] VITALS: BP 122/67; PULSE 66; RESP 16
== END 2024-05-19 12:15 | disposition home or self-care (01) ==
LOC: ORWHC2ENDO 09:26
PROVIDERS: ATTEND Internal Medicine Gastroenterology
CPT/HCPCS: 45380; 88305

== ENCOUNTER → 2024-10-04 | Outpatient (CLI) | payer MEDICARE ==
--- NOTE | 2024-10-04 14:30 | XR ---
EXAMINATION TYPE: XR shoulder complete LT DATE OF EXAM: 10/04/2024 2:09 PM INDICATION: Patient age:Male; 84 years old; Reason for study: [id number] LT SHLD PAIN; pain COMPARISON: None TECHNIQUE: The left shoulder was examined in AP, internally rotated and scapular Y projections. . FINDINGS: No evidence of acute osseous pathology, joint dislocation, or soft tissue swelling. There is joint sp kennedi narrowing with marginal osteophytosis involving the left shoulder. AC joint arthropathy with unde rsurface spurring. The remaining portions of the visualized chest are unremarkable. IMPRESSION: 1. No acute osseous pathology. 2. Mild AC joint and shoulder arthropathy. [facility], , 10/04/2024 2:28 PM
== END | disposition home or self-care (01) ==
LOC: RADXRYALE 13:57
PROVIDERS: ATTEND Physician Assistant Medical
DX: M19.012 Primary osteoarthritis, left shoulder (principal)